=== PATIENT | female | born 1975 | race Caucasian/White ===

== ENCOUNTER 2022-05-19 08:54 | Emergency (ER) | payer MEDICARE, MEDICAID ==
[~2022-05-19] VITALS: Ht 167.6 cm; Wt 73.4 kg
[2022-05-19 09:47] LABS: UA COLLECTION TYPE CLN CATCH MIDSTREAM
[2022-05-19 09:48] LABS: CLARITY,URINE CLEAR (Clear); COLOR,URINE YELLOW (Yellow); GLUCOSE, URINE NEGATIVE (Neg); KETONES,URINE NEGATIVE (Neg); LEUKOCYTE ESTERASE ,URINE NEGATIVE (Neg); NITRITES, URINE NEGATIVE (Neg); OCCULT BLOOD,URINE SMALL (Neg); PH,URINE 6.5 (4.8-8.0); PROTEIN,URINE NEGATIVE (Neg); UROBILINOGEN,URINE 0.2 E.U/dL (0.2-1.0)
[2022-05-19 09:49] LABS: BASOPHILS % (AUTO) 0.5 % (0-1); EOSINOPHILS % (AUTO) 0.5 % (0-6); HEMOGLOBIN 14.2 g/dl (12.0-16.0); LYMPHOCYTES # (AUTO) 1.6 X10'3 (1.1-4.8); LYMPHOCYTES % (AUTO) 17.6 % (21-51); MEAN CORPUSCULAR HEMOGLOBIN 32.7 PG (27.0-31.0); MEAN CORPUSCULAR HGB CONC 33.9 g/dL (33.0-36.5); MEAN CORPUSCULAR VOLUME 96.3 FL (78-98); MEAN PLATELET VOLUME 8.5 FL (7.4-10.4); MONOCYTES # (AUTO) 0.6 X10'3 (0-0.9); NEUTROPHILS # (AUTO) 6.6 X10'3 (1.8-7.7); NEUTROPHILS % (AUTO) 74.4 % (42-75); PLATELET COUNT 244 X10'3 (140-440); RED BLOOD COUNT 4.36 X10'6 (4.20-5.60); RED CELL DISTRIBUTION WIDTH 14.5 % (11.5-14.5); WHITE BLOOD COUNT 8.9 X10'3 (4.5-11.0)
[2022-05-19 09:51] LABS: URINE HCG NEGATIVE (NEG)
[2022-05-19 10:00] LABS: BACTERIA,URINE FEW /HPF (Neg); RBC,URINE 0-2 /HPF (0-2); SQUAMOUS EPITHELIAL CELL,UR FEW /LPF (FEW); WBC,URINE NONE SEEN /HPF (0-4)
[2022-05-19 10:21] LABS: ALANINE AMINOTRANSFERASE 24 U/L (12-78); ALKALINE PHOSPHATASE 72 IU/L (46-116); ANION GAP 9 (8-16); ASPARTATE AMINO TRANSFERASE 14 U/L (10-37); BILIRUBIN,TOTAL 0.7 MG/DL (0.1-1.0); BLOOD UREA NITROGEN 13 MG/DL (7-18); CALCIUM 8.9 MG/DL (8.5-10.1); CHLORIDE 104 MMOL/L (99-107); CREATININE 0.65 MG/DL (0.40-0.90); GLUCOSE 95 MG/DL (70-104); LIPASE 65 U/L (73-393); POTASSIUM 3.4 MMOL/L (3.5-5.1); SODIUM 140 MMOL/L (135-145); TOTAL CARBON DIOXIDE 26.8 MMOL/L (24-32); eGFR > 90 ML/MIN
[2022-05-19 11:49] VITALS: BP 101/67
== END 2022-05-19 11:51 | disposition home or self-care (01) ==
LOC: ER 08:54
DX: R10.9 Unspecified abdominal pain (principal); R11.2 Nausea with vomiting, unspecified; R19.7 Diarrhea, unspecified; R42 Dizziness and giddiness; R50.9 Fever, unspecified; Z88.1 Allergy status to other antibiotic agents; Z87.448 Personal history of other diseases of urinary system
CPT/HCPCS: 36415; 80053; 81001; 81025; 83690; 85025; 99283

== ENCOUNTER 2022-06-10 06:26 | Day surgery (SDC) | payer MEDICARE, MEDICAID ==
[~2022-06-10] VITALS: Ht 167.6 cm; Wt 72.3 kg
[2022-06-10 06:44] VITALS: BP 109/66
[2022-06-10] MEDS ORDERED: ACET-890 PO (07:08)
[2022-06-10] MEDS ORDERED: CLON0.5T4 PO (07:08)
[2022-06-10] MEDS ORDERED: POLY119P2 PO (07:09)
[2022-06-10] MEDS ORDERED: [UNRECOGNIZED DRUG - CODE] PO (07:10)
[2022-06-10] MEDS ORDERED: WHEA98PO PO (07:10)
[2022-06-10] MEDS ORDERED: MIDAZolam 1 MG/ML 5ML VIAL ONE (07:11)
[2022-06-10] MEDS ORDERED: fentaNYL/PF 50MCG/1 ML 2ML syringe ONE (07:11)
[2022-06-10] MEDS ORDERED: diphenhydrAMINE 50 mg/ml inj ONE (07:11)
[2022-06-10] MEDS ORDERED: SENN-263 PO (07:11)
[2022-06-10] MEDS ORDERED: SIME80TA15 PO (07:12)
[2022-06-10] MEDS ORDERED: DOCU-148 PO (07:12)
[2022-06-10] MEDS ORDERED: LIDOcaine Viscous 15ml cup ONE (07:13)
[2022-06-10 08:52] VITALS: BP 117/69
[2022-06-10 09:02] VITALS: BP 105/60
[2022-06-10 09:12] VITALS: BP 111/63
[2022-06-10 09:22] VITALS: BP 111/68
[2022-06-10 10:25] VITALS: BP 111/68
== END 2022-06-10 09:35 | disposition home or self-care (01) ==
LOC: GI LAB 06:26
PROVIDERS: ATTEND Internal Medicine Gastroenterology
DX: K59.00 Constipation, unspecified (principal); K57.30 Diverticulosis of large intestine without perforation or abscess without bleeding; K31.89 Other diseases of stomach and duodenum; K30 Functional dyspepsia
CPT/HCPCS: 43239; 45378; 99153; G0500; J1200; J2250; J3010; J7030; Z7512; 43235; 88305; 99152; A4620

== ENCOUNTER 2023-12-11 23:11 | Emergency (ER) | payer MEDICARE, MEDICAID ==
[~2023-12-11] VITALS: Ht 167.6 cm; Wt 70.0 kg
[~2023-12-11 23:11] MED LIST: ACET-890 PO; CLON0.5T4 PO; DOCU-148 PO; POLY119P2 PO; SENN-263 PO; SIME80TA15 PO; WHEA98PO PO; [UNRECOGNIZED DRUG - CODE] PO
[2023-12-11 23:26] VITALS: BP 115/61; PULSE 71; RESP 16; TEMP 98; O2SAT 100
[2023-12-12] MEDS ORDERED: LORA-268 PO (00:09)
[2023-12-12] MEDS: LORazepam 1 MG tablet PO ONE (00:37)
== END 2023-12-12 00:38 | disposition home or self-care (01) ==
LOC: ER 23:11
DX: F41.9 Anxiety disorder, unspecified (principal); Z88.1 Allergy status to other antibiotic agents; Z79.899 Other long term (current) drug therapy
CPT/HCPCS: 99283

== ENCOUNTER 2023-12-19 10:29 | Emergency (ER) | payer MEDICARE, MEDICAID ==
[~2023-12-19] VITALS: Ht 167.6 cm; Wt 71.0 kg
[~2023-12-19 10:29] MED LIST changes: +LORA-268 PO
[2023-12-19 11:39] LABS: BASOPHILS # (AUTO) 0.1 X10'3 (0-0.2); EOSINOPHILS % (AUTO) 0.9 % (0-6); HEMATOCRIT 37.6 % (35.0-45.0); HEMOGLOBIN 12.7 g/dl (12.0-16.0); LYMPHOCYTES # (AUTO) 1.6 X10'3 (1.1-4.8); LYMPHOCYTES % (AUTO) 31.4 % (21-51); MEAN CORPUSCULAR HEMOGLOBIN 33.5 PG (27.0-31.0); MEAN CORPUSCULAR HGB CONC 33.8 g/dL (33.0-36.5); MEAN CORPUSCULAR VOLUME 99.1 FL (78-98); MEAN PLATELET VOLUME 8.7 FL (7.4-10.4); MONOCYTES # (AUTO) 0.6 X10'3 (0-0.9); MONOCYTES % (AUTO) 11.2 % (2-12); NEUTROPHILS # (AUTO) 2.7 X10'3 (1.8-7.7); NEUTROPHILS % (AUTO) 55.5 % (42-75); PLATELET COUNT 225 X10'3 (140-440); RED CELL DISTRIBUTION WIDTH 14.1 % (11.5-14.5); WHITE BLOOD COUNT 4.9 X10'3 (4.5-11.0)
[2023-12-19] MEDS: normal saline 1000ML IV soln IVB ONE (11:47)
[2023-12-19 11:51] LABS: ALBUMIN 3.5 G/DL (3.4-5.0); ANION GAP 8 (8-16); BLOOD UREA NITROGEN 13 MG/DL (7-18); CALCIUM 8.7 MG/DL (8.5-10.1); CHLORIDE 105 MMOL/L (99-107); CREATININE 0.59 MG/DL (0.40-0.90); GLUCOSE 105 MG/DL (70-104); POTASSIUM 3.7 MMOL/L (3.5-5.1); SODIUM 140 MMOL/L (135-145); THYROID STIMULATING HORMONE 2.29 ulU/ml (0.34-4.50); TOTAL CARBON DIOXIDE 27.3 MMOL/L (24-32); eCRCL 109 ML/MIN; eGFR > 90 ML/MIN
[2023-12-19 11:56] LABS: ACETAMINOPHEN < 2.0 UG/ML (10-30); ETHANOL < 10 MG/DL (<10)
[2023-12-19 12:36] LABS: URINE HCG NEGATIVE (NEG)
[2023-12-19 12:37] LABS: BILIRUBIN,URINE NEGATIVE (Neg); CLARITY,URINE CLOUDY (Clear); COLOR,URINE YELLOW (Yellow); GLUCOSE, URINE NEGATIVE (Neg); KETONES,URINE NEGATIVE (Neg); LEUKOCYTE ESTERASE ,URINE NEGATIVE (Neg); NITRITES, URINE NEGATIVE (Neg); OCCULT BLOOD,URINE NEGATIVE (Neg); PROTEIN,URINE NEGATIVE (Neg); UA COLLECTION TYPE STRAIGHT CATH; UROBILINOGEN,URINE 0.2 E.U/dL (0.2-1.0)
[2023-12-19 12:43] LABS: MUCUS STRANDS FEW /LPF (Neg); SQUAMOUS EPITHELIAL CELL,UR MANY /LPF (FEW)
[2023-12-19 12:44] LABS: BACTERIA,URINE 1+ /HPF (Neg); RBC,URINE 0-2 /HPF (0-2); TRANSITIONAL EPI CELLS,URINE FEW /HPF; WBC,URINE 0-4 /HPF (0-4)
[2023-12-19 12:45] LABS: AMORPHOUS PHOSPHATES 2+
[2023-12-19 12:51] LABS: URINE AMPHETAMINE SCREEN NEGATIVE (Neg); URINE BARBITUATE SCREEN NEGATIVE (Neg); URINE BENZODIAZEPINES SCREEN NEGATIVE (Neg); URINE CANNABINOID SCREEN NEGATIVE (Neg); URINE COCAINE SCREEN NEGATIVE (Neg); URINE METHADONE SCREEN NEGATIVE (Neg); URINE OPIATE SCREEN NEGATIVE (Neg); URINE PHENCYCLIDINE SCREEN NEGATIVE (Neg)
[2023-12-19] MEDS ORDERED: QUET50TA PO (19:58)
[2023-12-19] MEDS ORDERED: CITA20TA28 PO (20:02)
[2023-12-19] MEDS ORDERED: HYDR-3686 PO (20:02)
[2023-12-19] MEDS ORDERED: FEXO-236 PO (20:02)
[2023-12-19] MEDS: clonazePAM 0.5mg tablet PO PRN (23:40)
[2023-12-20] MEDS: loratadine 10mg tablet PO SCH (09:57)
[2023-12-20] MEDS: citalopram 20mg tablet PO SCH (09:57)
[2023-12-20] MEDS: hydrOXYzine 25 MG tablet PO SCH (09:58)
[2023-12-20] MEDS: magnesium hydroxide 30ml (MOM) UD suspension PO ONE (12:09)
[2023-12-20] MEDS: bisacodyl 10mg suppository rectal RC STA (16:19)
[2023-12-20] MEDS: clonazePAM 1mg tablet PO ONE (16:19)
[2023-12-20] MEDS: QUEtiapine 25mg tablet PO SCH (19:41)
[2023-12-21] MEDS: magnesium citrate 296ml oral solution PO ONE (08:49)
[2023-12-21] MEDS: haloperidol 5mg tablet PO ONE (09:05)
[2023-12-21] MEDS: LORazepam 1 MG tablet PO ONE ×2 (10:46→17:23)
[2023-12-22 06:00] VITALS: BP 114/63; PULSE 79; TEMP 97.6; O2SAT 99
[2023-12-22] MEDS: LORazepam 1 MG tablet PO PRN (08:16)
[2023-12-22 16:41] VITALS: RESP 16
== END 2023-12-22 16:54 ==
LOC: ER 10:30
DX: T43.592A Poisoning by other antipsychotics and neuroleptics, intentional self-harm, initial encounter (principal); Z20.822 Contact with and (suspected) exposure to COVID-19; F41.9 Anxiety disorder, unspecified; Z98.890 Other specified postprocedural states; Z88.8 Allergy status to other drugs, medicaments and biological substances; Z79.899 Other long term (current) drug therapy; Y92.89 Other specified places as the place of occurrence of the external cause
CPT/HCPCS: 36415; 80048; 80305; 80320; 80329; 81001; 81025; 84443; 85025; 87811; 93005; 96360; 99291; J7030; Q0177; 99285

== ENCOUNTER 2025-03-31 11:22 | Emergency (ER) | payer MEDICARE, MEDICAID ==
[~2025-03-31] VITALS: Ht 167.6 cm; Wt 98.0 kg
[~2025-03-31 11:22] MED LIST changes: -ACET-890 PO; +CITA-178 PO; -DOCU-148 PO; +FEXO-236 PO; +HYDR-3686 PO; -LORA-268 PO; -POLY119P2 PO; +QUET50TA PO; -SENN-263 PO; -SIME80TA15 PO; -WHEA98PO PO; -[UNRECOGNIZED DRUG - CODE] PO
[2025-03-31 11:26] VITALS: BP 140/84; PULSE 97; RESP 18; TEMP 97.9; O2SAT 98
--- NOTE | 2025-03-31 11:31 | Physician Documentation ---
History of Present Illness ~ Stated Complaint: PANIC ATTACK Primary Medical Doctor: Tyler Powell [facility] HPI 49 y/o female BIB EMS due to anxiety and panic attacks. Reports long history of anxiety but over past 3 weeks anxiety is significantly worse. Appointment with psychiatrist today at 1430 but patient states that she could not wait that long. No SI or HI. Medication Reconciliation Allergies: Coded Allergies: cephalexin (Unverified Allergy, Intermediate, diarrhea, 05/19/22) ciprofloxacin (Unverified Allergy, Intermediate, diarrhea, 05/19/22) Scheduled Citalopram Hydrobromide* (Celexa*), 1 TAB PO DAILY, (Reported) Clonazepam (Clonazepam), 1 TAB PO Q12H PRN, (Reported) Fexofenadine HCl (Allergy Relief), 1 TAB PO DAILY, (Reported) Hydroxyzine Hcl* (Atarax*), 1 TAB PO BID, (Reported) Quetiapine Fumarate (Seroquel), 2 TAB PO HS, (Reported) Past Medical History Past Medical History: *GI/HEPATOBILIARY*, Constipation, UTI, *PSYCH*, Anxiety Past Surgical History: orthopedic surgeries Alcohol Use: Other Review of Systems All Other Systems at this time: Reviewed and Negative Physical Exam Physical Exam General Appearance: Alert, WD/WN. NAD. HEENT: NCAT, PERRL, EOMI. Neck: Supple, trachea midline. Lungs: Breathing unlabored Extremities: Normal inspection. No edema. Skin: Warm/dry, normal color Neurological: Alert and oriented x4, normal gait. Psychiatric: Affect congruent with mood. Medical Decision Making Differential Dx:Considerations: Include: Alcohol abuse, Anxiety, Bipolar disorder, Conversion disorder, Depression, Encephaloathy, Homicidal, Panic disorder, Personality disorder, Schizophrenia, Substance abuse, Suicidal, Other Differential Diagnosis Not suicidal, not gravely disabled, denies any thoughts of wanting to harm others. No hallucinations or delirium. Patient is stable for discharge to see psychiatrist at 14:30 today. Departure Time of Disposition: 11:29 Disposition: 01 HOME / SELF CARE / HOMELESS Impression: Primary Impression: Anxiety Condition: Stable Discharge Instructions: Managing Anxiety, Adult Additional Instructions: You are stable to wait to see psychiatrist at 14:30 today. Referrals: NO PRIMARY CARE PROVIDER (PCP) Education Educated: Patient Educated regarding: diagnosis, treatment, need for follow up Signature Scribe Signature: x Attestation: MARIBELL Nath March 31, 2025 11:31
== END 2025-03-31 11:48 | disposition home or self-care (01) ==
LOC: ER 11:22
DX: F41.9 Anxiety disorder, unspecified (principal); Z88.1 Allergy status to other antibiotic agents
CPT/HCPCS: 99283

== ENCOUNTER 2025-03-31 12:17 | Emergency (ER) | payer MEDICARE, MEDICAID ==
[~2025-03-31] VITALS: Ht 165.1 cm; Wt 98.0 kg
[2025-03-31 12:28] VITALS: BP 127/74; PULSE 98; TEMP 98; O2SAT 99
--- NOTE | 2025-03-31 12:33 | Physician Documentation ---
History of Present Illness ~ Stated Complaint: FALL Time Seen by MD: 14:01 [facility] HPI This 49-year-old female checks back into the emergency department after she fell twice in the lobby while leaving the hospital after being discharge after being seen for a panic attack, nursing staff and registration staff reported patient threw herself on the ground after being told that she could not lay in the lobby. Patient reports that she has been having episodes of lightheadedness and balance associated with a panic attacks and that she is feel any symptoms after standing up to leave the hospital, patient additionally reports that when she walked outside in the heat she had the symptoms again falling to the ground. Patient reports no loss of consciousness, no blood thinners, no head strike, patient reports that she felt like she hurt her knee but it no longer hurts on exam in his just itchy as there was a small rash on it. Patient reports no othe r acute symptoms or concerns. Tetanus within 5 Years?: Yes Medication Reconciliation Allergies: Coded Allergies: cephalexin (Unverified Allergy, Intermediate, diarrhea, 03/31/25) ciprofloxacin (Unverified Allergy, Intermediate, diarrhea, 03/31/25) Scheduled Citalopram Hydrobromide* (Celexa*), 1 TAB PO DAILY, (Reported) Clonazepam (Clonazepam), 1 TAB PO Q12H PRN, (Reported) Fexofenadine HCl (Allergy Relief), 1 TAB PO DAILY, (Reported) Hydroxyzine Hcl* (Atarax*), 1 TAB PO BID, (Reported) Quetiapine Fumarate (Seroquel), 2 TAB PO HS, (Reported) Past Medical History Past Medical History: *GI/HEPATOBILIARY*, Constipation, UTI, *PSYCH*, Anxiety Past Surgical History: orthopedic surgeries Alcohol Use: Other Review of Systems ROS Falls as stated above in the HPI, otherwise all systems are reviewed and negative. Physical Exam Physical Exam VITALS: Reviewed and as above. GENERAL: Alert, nontoxic appearing, no apparent distress. HEENT: Atraumatic, PERRLA, EOMI. No C-spine tenderness, no tenderness to pal pation to head RESPIRATORY: No increased work of breathing, no respiratory distress, speaking in full clear sentences, clear lung sounds in all hughes CV: Regular rate and rhythm no murmur BACK: Nontender to palpation, no midline tenderness MUSCULOSKELETAL: No tenderness to palpation to extremities SKIN: Skin of right knee small patch of mild erythema without abrasion, ecchymo sis, or laceration NEURO: Alert and oriented x 4, GCS 15. No facial drift. Normal muscle strength and tone. Normal finger to nose coordination and heel to tabares glide, speech clear, and normal gait. Negative Romberg, no pronator drift. Progress Results/Orders Results/Orders Completed Orders - MEKA CHADWICK Cbc/Diff (03/31/25 14:18) BMP (03/31/25 14:18) Electrocardiogram (03/31/25 14:18) Vital Signs 03/31/25 03/31/25 12:28 14:48 Temp 98.0 Pulse 98 Resp 18 17 B/P (MAP) 127/74 Pulse Ox 99 O2 Flow Rate 0 Laboratory Tests Test 03/31/25 14:32 White Blood Count 10.4 Red Blood Count 4.56 Hemoglobin 14.3 Hematocrit 42.5 Mean Corpuscular Volume 93.3 Mean Corpuscular Hemoglobin 31.5 H Mean Corpuscular Hemoglobin Concent 33.7 Red Cell Distribution Width 14.6 H Platelet Count 327 Mean Platelet Volume 8.9 Neutrophils (%) (Auto) 56.4 Lymphocytes (%) (Auto) 33.6 Monocytes (%) (Auto) 8.7 Eosinophils (%) (Auto) 0.8 Basophils (%) (Auto) 0.5 Neutrophils # (Auto) 5.8 Lymphocytes # (Auto) 3.5 Monocytes # (Auto) 0.9 Eosinophils # (Auto) 0.1 Basophils # (Auto) 0.1 CBC Comment Sodium Level 138 Potassium Level 3.6 Chloride Level 100 Carbon Dioxide Level 29.6 Anion Gap 8 Blood Urea Nitrogen 6 L Creatinine 0.70 Estimated GFR/1.73 m2 89 BUN/Creatinine Ratio 8.6 L Glucose Level 104 Calcium Level 9.2 Albumin 4.0 Chemistry Comments EKG/XRAY/CT/US/VASC/MRI EKG : Additional Comment EKG at 1428 interpreted by myself as normal sinus rhythm at a rate of [address]-elevation or depression Medical Decision Making Additional info obtained from: old records Findings This 49-year-old female presented checking back into the emergency department due to two falls in the ED lobby just after discharge after being seen for anxiety panic attacks, patient was seen by nursing staff appearing to intenti onally be falling to the ground described as throwing herself on the ground after being told she could not lay on the floor in the emergency department lobby while waiting for her ride, patient's previous visit was reviewed and she was to follow up with her primary care provider and primary mental health provider for further management of her anxiety and panic attacks. On my exam patient reported no significant pain describing her only injury as some itchiness to her right knee in on exam was only small patch of mild erythema appeared more to be a rash than abrasion or other injury, there was no tenderness to palpation and patient had full range of motion in all limbs including the supposedly injured knee, while patient insistent on seeing and wheelchair to come into the room she was observed to become inpatient walking multiple times with a steady gait to reportedly complain to registration about wait times. Patient was well-appearing in physical exam was benign, she is hemodynamically stable, EKG did not demonstrate any evidence of arrhythmia, infarction, or ischemia, lab work was benign without evidence of metabolic or electrolyte derangement and did not suggest clinical dehydration. Patient did request new prescription for anxiety medications however due to patient being seen for anxiety concern just prior discharge along with the fact that she already has a prescription for hydroxyzine I do not feel patient requires additional medication for anxiety as I would also prescribed hydroxyzine, fransisco zamorano made aware this fact in told to follow up with her mental health prescriber for medication adjustments. Patient is appropriate for outpatient follow up with primary care provider and mental health prescriber. Differential Dx:Considerations: Include: Closed head injury, Fracture(s), Spine injury, Abrasion(s), Contusion(s), Foreign body(s), Laceration(s) Departure Disposition: HOME / SELF CARE / HOMELESS Impression: Primary Impression: Fall Qualified Codes: W19.XXXA - Unspecified fall, initial encounter Condition: Improved Discharge Instructions: Fall Prevention in the Home, Adult, [id number] Additional Instructions: Your labs and EKG were reassuring, please follow up with your primary care provider for your described chronic symptoms, please follow up with your mental health provider for your described anxiety and panic attacks symptoms. Please follow up with your primary care provider in the next few days. Please return to the emergency department for any new or worsening concerning symptoms. Referrals: NO PRIMARY CARE PROVIDER (PCP) Education Educated: Patient Educated regarding: diagnosis, treatment, prognosis, need for follow up Additional Comment Medical Screen Exam 49 y/o female who was sitting in our lobby waiting for her ride when staff report she feel onto ground next to chair. Patient was assisted back into chair but refused to check back into ER for evaluation. Patient then ended up getting out of chair and walking out of ER to the parking lot where she fell again. Patient states that she fells dizzy and has right knee pain from falling. No loc and did not hit head. Right knee pain described as "itchy" when asked how she would rate her pain she states "It is not that bad, maybe about a 5/10." PEx: Patient is in NAD. Rubbing right knee. Ambulating from ER waiting to triage room without limp. Wearing pants and thus unable to evaluate right knee, pants are intake, not torn, no evidence for bleeding. No respiratory distress. No evidence of trauma to face or head. Speech clear. a/p: 1. Ground level fall 2. Knee pain, right 3. Dizziness Patient appears stable to wait for further evaluation and treatment. The note accurately reflects work and decisions made by me.Maribell MARI 03/31/25 12:32 Signature Scribe Signature: No scribe Attestation: The note accurately reflects work and decisions made by me.JOEY Buckley 04/01/25 00:46 MARIBELL DENG March 31, 2025 12:33 MEKA CHADWICK March 31, 2025 14:21
--- NOTE | 2025-03-31 14:30 | ELECTROCARDIOGRAPH REPORT ---
[facility] Test Date: 2025-03-31 Test Time: 14:28:02 Pat Name: NAHUN PAZ Department: [facility] Patient ID: [id number] Room: Gender: F Hotbed Operator: : 1975 Requested By: MEKA CHADWICK Order Number: [id number] Reading MD: Dr. Nile Flores Measurements Intervals [place] Rate: 88 P: 60 OK: 138 QRS: 64 QRSD: 94 T: 15 QT: 374 QTc: 453 Interpretive Statements Sinus rhythm Electronically Signed On 04-01-2025 11:01:[address] Nile Flores Please click the below link to view image of tracing.
[2025-03-31 14:48] VITALS: RESP 17
[2025-03-31 15:08] LABS: BASOPHILS # (AUTO) 0.1 X10'3 (0-0.2); BASOPHILS % (AUTO) 0.5 % (0-1); EOSINOPHILS # (AUTO) 0.1 X10'3 (0-0.9); EOSINOPHILS % (AUTO) 0.8 % (0-6); HEMATOCRIT 42.5 % (35.0-45.0); HEMOGLOBIN 14.3 g/dl (12.0-16.0); LYMPHOCYTES # (AUTO) 3.5 X10'3 (1.1-4.8); LYMPHOCYTES % (AUTO) 33.6 % (21-51); MEAN CORPUSCULAR HEMOGLOBIN 31.5 PG (27.0-31.0); MEAN CORPUSCULAR HGB CONC 33.7 g/dL (33.0-36.5); MEAN CORPUSCULAR VOLUME 93.3 FL (78-98); MEAN PLATELET VOLUME 8.9 FL (7.4-10.4); MONOCYTES # (AUTO) 0.9 X10'3 (0-0.9); MONOCYTES % (AUTO) 8.7 % (2-12); NEUTROPHILS # (AUTO) 5.8 X10'3 (1.8-7.7); NEUTROPHILS % (AUTO) 56.4 % (42-75); PLATELET COUNT 327 X10'3 (140-440); RED BLOOD COUNT 4.56 X10'6 (4.20-5.60); RED CELL DISTRIBUTION WIDTH 14.6 % (11.5-14.5); WHITE BLOOD COUNT 10.4 X10'3 (4.5-11.0)
[2025-03-31 15:12] LABS: ANION GAP 8 (8-16); BLOOD UREA NITROGEN 6 MG/DL (7-18); BUN/CREATININE RATIO 8.6 (10.0-20.0); CALCIUM 9.2 MG/DL (8.5-10.1); CHLORIDE 100 MMOL/L (99-107); GLUCOSE 104 MG/DL (70-104); POTASSIUM 3.6 MMOL/L (3.5-5.1); SODIUM 138 MMOL/L (135-145); TOTAL CARBON DIOXIDE 29.6 MMOL/L (24-32); eCRCL 87 ML/MIN; eGFR 89 ML/MIN
== END 2025-03-31 15:49 | disposition home or self-care (01) ==
LOC: ER 12:18
DX: R42 Dizziness and giddiness (principal); Z88.1 Allergy status to other antibiotic agents; W18.30XA Fall on same level, unspecified, initial encounter; Y93.89 Activity, other specified; Y92.89 Other specified places as the place of occurrence of the external cause; Y99.8 Other external cause status
CPT/HCPCS: 36415; 80048; 85025; 93005; 99284